=== PATIENT | female | born 1990 | race Caucasian/White ===

== ENCOUNTER 2021-08-13 07:26 | Day surgery (SDC) | payer OTHER ==
[~2021-08-13] VITALS: Ht 165.1 cm; Wt 70.5 kg
--- NOTE | 2021-08-13 10:03 | NUR ---
PT IS ALERT, ORIENTED AND SUPPORTED BY HER MOTHER FRANDY. PT IS HERE FOR HER VERY FIRST SURGERY-SEEMS TO BE IN CONTROL. QUESTIONS ASKED ANSWERED. PT REQUESTED PRAYER, PT RRELAXED ENOUGH TO LAUGH AND JOKE. THIS SEEMED TO HELP EASE HER ANXIETY. WILL FOLLOW NEEDED
--- NOTE | 2021-08-13 11:10 | NUR ---
08/13/21 1110 JEANNE YOUNG 1104-PATIENT TO PACU ON 6L VIA MASK. VSS. PATIENT RACTIVE. RESP RATE EVEN.
[2021-08-13] MEDS ORDERED: IBUPROFEN600 MG PO (11:35)
[2021-08-13] MEDS ORDERED: HYDROCODON-ACE1 EA10 PO (11:35)
[2021-08-13] MEDS ORDERED: ACETAMINOPHEN500 MG PO (11:36)
--- NOTE | 2021-08-13 11:53 | NUR ---
PATIENT BACK IN DAY SURGERY ROOM FROM PACU. RATES PAIN 2/10. DENIES NEED FOR PAIN MEDICATION AT THIS TIME. VS CHECKED. PATIENT GIVEN ICE WATER AND TAMIKO CRACKERS. ABDOMINAL SITES WITH STERI STRIPS WITH SMALL AMOUNT OF RED DRAINAGE. IV SITE WNL. SCDs ON. MOTHER AT BEDSIDE. CALL LIGHT WITHIN REACH.
--- NOTE | 2021-08-13 13:58 | OR ---
[facility] [address], [place] [address] Signed DATE OF OPERATION: 08/13/2021 SURGEON: Damien Page MD PREOPERATIVE DIAGNOSIS: Chronic acalculous cholecystitis. POSTOPERATIVE DIAGNOSIS: Chronic acalculous cholecystitis. PROCEDURES: 1. Laparoscopic cholecystectomy with intraoperative cholangiogram. 2. Surgeon-directed fluoroscopy. ANESTHESIA: General endotracheal; Jorge Mann CRNA and local 20 mL of 0.25% Marcaine with epinephrine. INDICATION: This 30-year-old white woman is a patient of Mary Grace Wei, was found to have typical biliary symptoms including right subcostal pain, epigastric pain and postprandial bloating. A gallbladder ultrasound was performed on May 31 that showed a contracted gallbladder and multiple gallstones. She has normal preoperative liver enzymes and is COVID negative. She is admitted at this time to undergo cholecystectomy preferred by a laparoscopic approach. Understanding the risks of bleeding, infection, bile duct injury, need for open procedure and other unforeseen complications including failure to cure her symptoms. She understands and she wished to proceed. FINDINGS: The gallbladder was chronically inflamed, had a whitish appearance. The liver was normal. Dissection showed that the gallbladder was well demonstrated in relation to the cystic duct and common bile duct. The cystic duct was rather short. It was safely occluded without encumbrance to the common bile duct. Cholangiogram confirmed these findings and showed no sign of filling defect within the biliary tree. The gallbladder once opened had several small whitish multifaceted gallstones with mucoid material within the gallbladder itself. There was no sign of neoplasm of the gallbladder mucosa. DESCRIPTION OF PROCEDURE: Electronically Signed By: DAMIEN PAGE MD 08/13/21 1358 PATIENT NAME: PUNEET DWYER OPERATIVE REPORT DATE OF : [birth year] REPORT #: [id number] PHYSICIAN: DAMIEN PAGE MD PCP: MARY GRACE WEI NP REPORT IS CONFIDENTIAL AND NOT TO BE RELEASED WITHOUT AUTHORIZATION [facility] [address], [place] [address] Signed The patient was brought to the operating room, given a general endotracheal anesthetic. Preoperative antibiotic Ancef was given. Sequential compression device stockings applied and subcutaneous heparin administered. After satisfactory general endotracheal anesthesia, the abdomen is prepared with a chlorhexidine solution and draped sterilely. An infraumbilical incision was made using an open Rose cannula technique, pneumoperitoneum was achieved to a level of 14 mmHg of carbon dioxide gas. Intraabdominal inspection showed no sign of ascites or carcinomatosis. The gallbladder showed a whitish appearance consistent with chronic cholecystitis. The liver appeared normal. Three additional trocars were placed in usual configuration in the subxiphoid, right midclavicular, and right anterior axillary line. The gallbladder was elevated cephalad and retracted laterally. Using blunt and electrocautery dissection, the triangle of Calot was dissected free. Meticulous care was taken in the dissection, ultimately identifying the infundibulum and cystic duct very well. The common bile duct is easily visible through a relatively thin peritoneum overlying the violeta hepatis. A clip was applied across the gallbladder cystic duct junction after retrograde milking of the cystic duct. There were stones crowding the infundibulum. A transverse choledochotomy was made in the cystic duct close to the gallbladder itself. Retrograde milking of the cystic duct showed no sign of stone or other debris. Using the Matamoros type cholangiocatheter, intraoperative cholangiography was undertaken. This showed free flow of contrast into the biliary tree distally and passage into the duodenum without impediment. There was no sign of filling defect. Close inspection in the area of insertion of the catheter to the cystic duct showed a confluence of the cystic duct relatively close to the common bile duct and common hepatic duct. No additional dissection was undertaken at that point. The catheter was removed and with various manipulations, the cystic duct was more fully developed so as to better define its anatomy, particularly in relation to the common hepatic duct considering relatively short cystic duct was noted. It is certainly possible that some of the cystic duct was fused to the common duct, and only appearing to be very short-- I do not know entirely. Once a slightly longer length of cystic duct was better defined, three clips were securely applied to the cystic duct remnant. the cystic duct was transected and the gallbladder dissected free in a retrograde fashion using electrocautery. The gallbladder was placed in an endobag and extracted through the infraumbilical port without problem, opened on the back table and found to have mucoid inflammatory material in the gallbladder with multiple small pale white and yellow multifaceted gallstones. Irrigation was undertaken in the subhepatic space. The anatomy of the cystic duct in relation to the common bile duct was well defined and photographs taken. There was no encumbrance of the common bile duct from the clips and no injury to it. Electronically Signed By: DAMIEN PAGE MD 08/13/21 1358 PATIENT NAME: PUNEET DWYER OPERATIVE REPORT DATE OF : [birth year] REPORT #: [id number] PHYSICIAN: DAMIEN PAGE MD PCP: MARY GRACE WEI NP REPORT IS CONFIDENTIAL AND NOT TO BE RELEASED WITHOUT AUTHORIZATION [place] [id number] Signed Some Tisseel was delivered to the bed of the gallbladder though there was no active bleeding at that time at all. Excess irrigation of fluid was suctioned free and the trocars removed under direct visualization. The infraumbilical fascial incision was reapproximated with interrupted 0 Vicryl suture. 20 mL of 0.25% Marcaine with epinephrine was injected locally. The skin was then closed with interrupted 3-0 Vicryl. Steri-Strips were applied and the patient was ultimately allowed to emerge from anesthesia, extubated, and transferred to the recovery room in good condition. BLOOD LOSS: Minimal. COMPLICATIONS: None. MD HENNA Ortiz/ANNETTEL /[id number] cc: HOLGER Shipman Copies: ~ Electronically Signed By: DAMIEN PAGE MD 08/13/21 1358 PATIENT NAME: PUNEET DWYER OPERATIVE REPORT DATE OF : [birth year] REPORT #: [id number] PHYSICIAN: DAMIEN PAGE MD PCP: WEI,MARY GRACE MANGLE ROLLER REPORT IS CONFIDENTIAL AND NOT TO BE RELEASED WITHOUT AUTHORIZATION
--- NOTE | 2021-08-13 14:11 | NUR ---
1250: VS CHECKED. PATIENT TOLERATED TAMIKO CRACKER AND WATER. DENIES NEED FOR PAIN MEDICATION AT THIS TIME. NO NEEDS AT THIS TIME. MOTHER AT BEDSIDE. CALL LIGHT WITHIN REACH. 1340: PATIENT ASSISTED OOB AND TO BATHROOM. GAIT STEADY TO BATHROOM. VOID APPROXIMATELY 250 ML. GAIT STEADY BACK TO ROOM. PATIENT GETTING DRESSED WITH HELP FROM MOTHER. 1400: PATIENT MEDICATED FOR BACK PAIN WITH 1 TAB OF HYDROCODONE. DISCHARGE INSTRUCTIONS GIVEN TO PATIENT AND MOTHER. VS CHECKED. MOTHER AT BEDSIDE. CALL LIGHT WITHIN REACH.
--- NOTE | 2021-08-13 14:24 | NUR ---
1418: IV DC'D WNL. TIP INTACT. DRESSING APPLIED. PATIENT DISCHARGED TO HOME WITH MOTHER VIA WHEELCHAIR.
== END 2021-08-13 14:18 | disposition home or self-care (01) ==
LOC: DS 07:26
PROVIDERS: ATTEND Surgery
PROC: BF13YZZ Fluoroscopy of Gallbladder and Bile Ducts using Other Contrast (ICD-10-PCS; 2021-08-13)
PROC: 0FT44ZZ Resection of Gallbladder, Percutaneous Endoscopic Approach (ICD-10-PCS; principal; 2021-08-13 09:00)
DX: K80.10 Calculus of gallbladder with chronic cholecystitis without obstruction (principal); Z87.891 Personal history of nicotine dependence; Z86.16 Personal history of COVID-19
CPT/HCPCS: 00790; 74300; 84703; 88304; J0131; J0330; J0690; J1100; J1644; J1885; J2270; J2405; J2704; J3010; J7121; Q9967

== ENCOUNTER 2024-05-05 11:06 | Emergency (ER) | payer OTHER ==
[~2024-05-05] VITALS: Ht 165.1 cm; Wt 68.9 kg
[~2024-05-05 11:06] MED LIST: ACETAMINOPHEN500 MG PO; HYDRALAZINE HCL10 MG; HYDROCODON-ACE1 EA10 PO; HYDROXYZINE HCL10 MG PO; HYDROXYZINE HCL25 MG PO; IBUPROFEN600 MG PO; OMEPRAZOLE20 MG PO; ZOLOFT25 MG PO
--- OUTSIDE RECORDS SUMMARY | 2024-05-05 11:14 | XMS ---
PreManage Notification: PUNEET DWYER Security Speech Therapist Technician Events No recent Security Events currently on file CRITERIA MET - [facility] - 2 Visits in 30 Days CARE PROVIDERS -[facility] Dentist: Foreign Student Adviser Teacher [facility] PHONE: [phone] -Gavin- Dentist: Foreign Student Adviser Teacher Current [facility] PHONE: [phone] [facility]: [facility] Current \F\ [facility] PHONE: [phone] Angie has no Care Guidelines for this patient. E.D. V[facility]IT COUNT (12 MO.) [facility] TOTAL 3 NOTE: Visits indicate total known visits. ED/UCC VISIT TRACKING (12 MO.) 05/05/2024 11:08 [facility] [place] TYPE: Emergency COMPLAINT: - ABDOMINAL PAIN 04/18/2024 11:35 [facility] TYPE: Emergency COMPLAINT: - CHEST PRESSURE DIAGNOSES: - Anxiety disorder, unspecified - Other chest pain - Other continuous churn buttermaker (current) drug therapy 03/21/2024 04:16 [facility] Gregorio [facility]IN ([facility]) TYPE: Emergency DIAGNOSES: - Acute stress reaction - Panic disorder [episodic paroxysmal anxiety] - anxiety rapid heart rate - Panic Attack INPATIENT VISIT TRACKING (12 MO.) No inpatient visits to display in this time frame [email or web address]
[2024-05-05] MEDS ORDERED: LIDOCAINE & ANTACID 35 ML BTL PO ONE (12:00)
[2024-05-05 12:01] LABS: HEMOGLOBIN 12.7 g/dL (12.0-18.0)
[2024-05-05 12:03] LABS: BASOPHILS 0.6 % (0-2); EOSINOPHILS 0.2 % (0-6); HEMATOCRIT 38.3 % (35.0-50.0); LYMPHOCYTES 17.9 % (24-44); MCH 29.8 (27-36); MCHC 33.1 g/dl (30-36); MCV 90.1 fl (81-99); MONOCYTES 7.3 % (0-12); PLATELET COUNT 218 K/uL (140-440); RBC 4.25 M/ul (4.3-5.7); RDW 13.8 (10.5-15.0)
[2024-05-05 12:15] LABS: ALBUMIN 3.5 g/dL (3.4-5.0); ALBUMIN/GLOBULIN RATIO 1.09 (1.1-2.4); ANION GAP 11.1 (7-21); BILIRUBIN, TOTAL 0.6 ng/dL (0.2-1.0); BUN/CREATININE RATIO 9.52 (6.0-28.6); CALCIUM 8.5 mg/dL (8.5-10.1); CREATININE, SERUM 0.84 mg/dL (0.55-1.02); POTASSIUM 4.1 mmol/L (3.5-5.1); PROTEIN, TOTAL 6.7 g/dL (6.4-8.2)
[2024-05-05 13:00] VITALS: BP 108/75
== END 2024-05-05 13:00 | disposition home or self-care (01) ==
LOC: ED 11:06
PROVIDERS: Emergency Medicine
DX: K21.9 Gastro-esophageal reflux disease without esophagitis (principal); Z79.899 Other long term (current) drug therapy
CPT/HCPCS: 36415; 80053; 83690; 85025; 99284

== ENCOUNTER 2024-11-24 07:24 | Day surgery (SDC) | payer OTHER ==
[~2024-11-24] VITALS: Ht 162.6 cm; Wt 68.2 kg
[~2024-11-24 07:24] MED LIST changes: +IBLOOD GLUCOSE TEST STRIP 1 EA TEST VI PRN; +LACTATED RINGER'S 1,000 ML IV SCH; +LARIN FE 1-201 EACH PO; +LIDOCAINE HCL 1% 5 ML SDV INJ ONE; +MIDAZOLAM HCL 5 MG/5 ML VIAL IV PRN; +PROBIOTIC250 MG PO; +SUCRALFATE1 GM PO; +fentaNYL citrate 100 MCG/2 ML VIAL IV PRN
[2024-11-24 07:40] VITALS: BP 116/65
[2024-11-24] MEDS ORDERED: MAGNESIUM250 M1 PO (07:44)
[2024-11-24] MEDS ORDERED: MULTI VITAMIN1 EACH PO (07:45)
[2024-11-24] MEDS ORDERED: fentaNYL citrate 100 MCG/2 ML VIAL ONE ×2 (08:05→08:34)
[2024-11-24] MEDS ORDERED: MIDAZOLAM HCL 2 MG/2 ML VIAL ONE (08:06)
--- NOTE | 2024-11-24 09:09 | NUR ---
11/24/24 0909 Ivelisse Ivy 0859 PT ARRIVED TO PACU ON 2L VIA NC, PT WAKES EASILY AND IS REORIENTED TO PACU. 0908 O2 REMOVED, PT AWAKE AND TALKING TO RN.
[2024-11-24 09:32] VITALS: BP 104/63
--- NOTE | 2024-11-26 12:12 | OR ---
[facility] [address], [place] [address] Signed DATE OF OPERATION: 11/24/2024 SURGEON: Damien Page MD PREOPERATIVE DIAGNOSES: 1. Generalized abdominal pain, diarrhea, and rare rectal bleeding. 2. History of cholecystectomy in 2020. POSTOPERATIVE DIAGNOSIS: Minimal diverticular changes, otherwise normal. PROCEDURE: Total colonoscopy to cecum with biopsy of rectum. ANESTHESIA: Intravenous sedation, fentanyl 200 mcg and Versed 6 mg. INDICATIONS FOR THE PROCEDURE: This 33-year-old white woman is a patient of HOLGER Shipman. She has had vague abdominal complaints and diarrhea. Notably, she underwent laparoscopic cholecystectomy in 2020. She has had constipation in the past as well, but none recently and has had occasional blood per rectum. She has no family history of colon cancer. She is admitted to undergo colonoscopy to better characterize the problem. She understands the risk of bleeding, infection, and perforation. FINDINGS: The prep was excellent. Complete colonoscopy was undertaken of the cecum with full intubation of the cecum. There was no evidence of colitis per se. Biopsies were taken of the rectum to assess for occult colitis. She did have scattered diverticula. There were no polyps. DESCRIPTION OF PROCEDURE: The patient was brought to the endoscopy suite and placed in lateral decubitus position given intravenous sedation to the point of slurred speech and nystagmus. Digital rectal examination was normal. An Olympus video colonoscope was passed into the rectum and manipulated throughout the colon noting a few scattered diverticula of the sigmoid. The scope was ultimately advanced to the cecum with the assistance of abdominal wall stabilization. The ileocecal valve and appendiceal orifice were normal. Scope was withdrawn from that Electronically Signed By: DAMIEN PAGE MD 11/26/24 1212 PATIENT NAME: PUNEET DWYER OPERATIVE REPORT DATE OF : [birth year] REPORT #: [id number] PHYSICIAN: DAMIEN PAGE MD PCP: MARY GRACE VELAZQUEZ NP REPORT IS CONFIDENTIAL AND NOT TO BE RELEASED WITHOUT AUTHORIZATION [facility] [address], [place] [address] Signed point. Examination throughout showed no sign of abnormality, specifically no overt colitis, no polyps and no cancer. Only a few scattered shallow diverticula. Biopsy was taken of the rectum to assess for occult colitis. The scope was removed. The patient was taken to the recovery room in good condition. 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 We will offer her Questran 4 g p.o. q.i.d. tapering to the lowest effective dose. She will return to the ongoing care of Mary Grace Velazquez otherwise. We would recommend repeat colonoscopy in 10 years based on current guidelines. MD HENNA Ortiz/DESI /[id number] cc: HOLGER Shipman Copies: ~ Electronically Signed By: DAMIEN PAGE MD 11/26/24 1212 PATIENT NAME: PUNEET DWYER OPERATIVE REPORT DATE OF : [birth year] REPORT #: [id number] PHYSICIAN: DAMIEN PAGE MD PCP: MARY GRACE VELAZQUEZ NP REPORT IS CONFIDENTIAL AND NOT TO BE RELEASED WITHOUT AUTHORIZATION
--- NOTE | 2024-11-28 11:00 | PATH ---
[facility] [address] [place], [place] [address] Signed SPECIMEN(S): A RECTUM SPECIMEN SOURCE: A. RECTUM CLINICAL HISTORY: History of bloating/constipation, post: Diverticulosis FINAL PATHOLOGIC DIAGNOSIS: Rectum, biopsy: - Colonic mucosa with no significant pathologic changes BRP MICROSCOPIC EXAMINATION: Histologic sections of all submitted blocks are examined by light microscopy. These findings, together with the gross examination, support the pathologic diagnosis. GROSS DESCRIPTION: The specimen, labeled and designated "Sophia Berger, rectum," is received in formalin and consists of two mauricio soft tissue fragments, ranging from 0.2-0.3 cm. Entirely submitted in (A1). AB (under the direct supervision of a pathologist) The Gross Description was prepared using a voice recognition system. The report was reviewed for accuracy; however, sound-alike word errors, addition and/or deletions may occur. If there is any question about this report, please contact Client Services. ADDITIONAL NOTES: Immunohistochemical and/or in situ hybridization studies if performed in this case included appropriate positive controls that reacted as expected. This test was developed and its performance characteristics determined by [facility]. It has not been cleared or approved by the U.S. Food and Drug Administration. The FDA has determined that such clearance or approval is not necessary. This test is used for clinical purposes. It should not be regarded as investigational or for research. [facility] is certified under the Clinical Laboratory Improvement Amendments of 1988 (CLIA) as qualified to perform high complexity clinical laboratory testing. PATIENT NAME: PUNEET BERGER PATHOLOGY DATE OF : [birth year] REPORT #: [id number] PHYSICIAN: AVI PRYOR PCP: BECCA WEI NP REPORT IS CONFIDENTIAL AND NOT TO BE RELEASED WITHOUT AUTHORIZATION [facility] [address] [place], [place] [address] Signed PERFORMING LABORATORY: Technical component [place] [address] (CLIA# [id number]). Professional interpretation was performed by [facility] [place] [address] (CLIA#: [id number]). Diagnostician: Fabricio Shin MD Pathologist Electronically Signed 11/28/2024 Copies: ~ PATIENT NAME: PUNEET BERGER PATHOLOGY DATE OF : [birth year] REPORT #: [id number] PHYSICIAN: AVI PRYOR PCP: BECCA WEI NP REPORT IS CONFIDENTIAL AND NOT TO BE RELEASED WITHOUT AUTHORIZATION
== END 2024-11-24 09:41 | disposition home or self-care (01) ==
LOC: OPS 07:24 → DS 07:24 → OPS 08:15 → DS 11:00 → OPS 12:00
PROVIDERS: ATTEND Surgery
PROC: 0DBP8ZX Excision of Rectum, Via Natural or Artificial Opening Endoscopic, Diagnostic (ICD-10-PCS; principal; 2024-11-24 08:15)
DX: R10.84 Generalized abdominal pain (principal); R14.0 Abdominal distension (gaseous); K57.30 Diverticulosis of large intestine without perforation or abscess without bleeding; K59.09 Other constipation; Z90.49 Acquired absence of other specified parts of digestive tract
CPT/HCPCS: 84703; 88305; 99153; G0500; J2250; J3010